=== PATIENT | female | born 1945 | race Caucasian/White ===

== ENCOUNTER 2018-01-18 13:24 | Outpatient (CLI) | payer MEDICARE, OTHER ==
--- NOTE | 2018-01-18 17:11 | MRI ---
BRAIN MRI WITH AND WITHOUT CONTRAST: Date: 01/18/18 HISTORY: Stroke in 2015. Transient ischemic attack. COMPARISON: None. TECHNIQUE: Brain MRI is performed without intravenous and with intravenous Gadolinium administration. Multiseque ntial, multiplanar imaging is performed. FINDINGS: Central arterial flow-voids are maintained. There is no restricted diffusion. No hemorrhage on the axial gradient echo sequence. No parenchymal mass, mass effect, or midline shift. Brain volume is age-appropriate. Cortical mason-wh ite matter differentiation is preserved. Ventricles and sulci are patent and symmetric. Note is made of a partially empty sella. Appropriate T1 marrow signal intensity in the calvarium. Midline brain parenchymal structures are unr emarkable. Minimal white matter hyperintensities on the axial T2 and FLAIR sequence. There is an extra-axial mass along the right frontal convexity measuring 1.5 x 1.1 cm. There is assoc iated enhancement. Meningioma is favored. No pathologic enhancement of the brain parenchyma. IMPRESSION: 1. Absent restricted diffusion. No acute infarction. 2. Age-appropriate atrophy. 3. Meningioma along the right frontal convexity. No significant associated mass effect or vasogenic edema. POS: [facility]
== END 2018-01-18 13:25 | disposition home or self-care (01) ==
LOC: SCSMRI 13:24
PROVIDERS: ATTEND Psychiatry & Neurology Neurology
DX: G45.9 Transient cerebral ischemic attack, unspecified (principal); G31.1 Senile degeneration of brain, not elsewhere classified; D32.0 Benign neoplasm of cerebral meninges
CPT/HCPCS: 70553; 82565